=== PATIENT | female | born 1985 | race Caucasian/White ===

== ENCOUNTER 2020-11-15 20:32 | Emergency (ER) | payer OTHER ==
[2020-11-15 21:30] LABS: HEMOGLOBIN 13.5 gm/dl (12.3-15.3); RED BLOOD COUNT 4.4 M/UL (4.00-5.10); WHITE BLOOD COUNT 19.1 K/UL (4.5-11.0)
[2020-11-15 21:35] LABS: BUN/CREATININE RATIO 17 (0-10)
[2020-11-16 01:27] LABS: HEMOGLOBIN 12.7 gm/dl (12.3-15.3); RED BLOOD COUNT 4.14 M/UL (4.00-5.10)
[2020-11-16 01:31] LABS: WHITE BLOOD COUNT 27.1 K/UL (4.5-11.0)
== END 2020-11-16 03:39 | disposition home or self-care (01) ==
LOC: ER1 20:32
PROVIDERS: Family Medicine
DX: S80.812A Abrasion, left lower leg, initial encounter (principal); R41.0 Disorientation, unspecified; F41.9 Anxiety disorder, unspecified; F19.10 Other psychoactive substance abuse, uncomplicated; D72.829 Elevated white blood cell count, unspecified; M54.2 Cervicalgia; R10.9 Unspecified abdominal pain; V40.6XXA Car passenger injured in collision with pedestrian or animal in traffic accident, initial encounter; Y92.410 Unspecified street and highway as the place of occurrence of the external cause; Z23 Encounter for immunization; Z20.822 Contact with and (suspected) exposure to COVID-19
CPT/HCPCS: 70450; 72125; 73590; 80053; 80307; 81001; 83605; 84703; 85025; 85610; 85730; 86850; 86900; 86901; 90471; 90715; 94760; 99284; G0480; Q9967; U0002